=== PATIENT | female | born 1990 | race Caucasian/White ===

== ENCOUNTER 2019-02-09 14:44 | Outpatient (CLI) | payer OTHER | END 2019-02-10 10:49 | disposition home or self-care (01) | LOC: OBS/DEL 14:44 | DX: O16.2 Unspecified maternal hypertension, second trimester (principal); Z34.02 Encounter for supervision of normal first pregnancy, second trimester; O99.012 Anemia complicating pregnancy, second trimester; D64.89 Other specified anemias; O99.212 Obesity complicating pregnancy, second trimester; E66.01 Morbid (severe) obesity due to excess calories ==

== ENCOUNTER 2019-05-15 05:34 | Inpatient (IN) | payer OTHER ==
[~2019-05-15] VITALS: Ht 160 cm; Wt 3.2 kg
== END 2019-05-18 15:02 | disposition home or self-care (01) | DRG 788 ==
LOC: LDR 05:34 → OB/GYN 21:21
PROVIDERS: ADMIT Obstetrics & Gynecology
PROC: 10907ZC Drainage of Amniotic Fluid, Therapeutic from Products of Conception, Via Natural or Artificial Opening (ICD-10-PCS; 2019-05-15)
PROC: 3E0P7VZ Introduction of Hormone into Female Reproductive, Via Natural or Artificial Opening (ICD-10-PCS; 2019-05-15)
PROC: 3E033VJ Introduction of Other Hormone into Peripheral Vein, Percutaneous Approach (ICD-10-PCS; 2019-05-15)
PROC: 4A1HXCZ Monitoring of Products of Conception, Cardiac Rate, External Approach (ICD-10-PCS; 2019-05-15)
PROC: 10D00Z1 Extraction of Products of Conception, Low, Open Approach (ICD-10-PCS; principal; 2019-05-15 17:00)
DX: O82 Encounter for cesarean delivery without indication (principal); O61.0 Failed medical induction of labor; Z3A.39 39 weeks gestation of pregnancy; Z37.0 Single live birth

== ENCOUNTER 2019-05-21 00:06 | Inpatient (IN) | payer OTHER ==
[~2019-05-21] VITALS: Ht 160 cm; Wt 136.1 kg
--- NOTE | 2019-05-21 00:17 | NUR ---
SE RECIBE PTE ALERTA Y ORIENTADA X3,REFIERE QUE PARIO EL LUNES POR CESAREA ,REFIERE DOLOR EN EL AREA DE LA CESAREA,REFIERE QUE LA HERIDA ESTA CON SECRECIONES PURULENTAS,HORNE GINECOLOGO EL DR.CARLOS BULL.
--- NOTE | 2019-05-21 00:54 | NUR ---
EVALUA PACIENTE Y ORDENA TRATAMIENTO DEL CUAL ORIENTA PACIENTE.REFIERE COMPRENDER. COLECTA MUESTRAS DE LABORATORIOS Y ADMINISTRA MEDICAMENTO ISAMAR ORDEN MEDICA BAJO MEDIDAS ASEPTICAS.
--- NOTE | 2019-05-21 07:00 | NUR ---
PACIENTE ALERTA Y ORIENTADA EN JACKI BITA ESFERAS, PRESENTA BUEN PATRON RESPIRATORIO Y GENOVEVA DE DOLOR. CANALIZADA EN MANO RT PATENTE Y GENOVEVA DE S/S DE FLEBITIS E INFILTRACION, RECIBIENDO 0.45% NSS A 125 ML/HR. PENDIENTE QUE PACIENTE ENTREGUE MUESTRA DE ORINA PARA UA Y UC CLEAN CATCH. PACIENTE REFIERE NO TENER DESEOS. PENDIENTE EVALUACION MEDICA POR PARTE DE GINECOLOGIA.
== END 2019-06-05 16:06 | disposition home or self-care (01) | DRG 853 ==
LOC: ER 00:06 → OB/GYN 12:06 → SURH 12:06 → OB/GYN 05-22 10:33 → SURH 05-24 23:06
PROVIDERS: Surgery; ADMIT Obstetrics & Gynecology
PROC: 4A12X4Z Monitoring of Cardiac Electrical Activity, External Approach (ICD-10-PCS; 2019-05-25)
PROC: 0JB80ZZ Excision of Abdomen Subcutaneous Tissue and Fascia, Open Approach (ICD-10-PCS; 2019-05-26)
PROC: 0W9F0ZZ Drainage of Abdominal Wall, Open Approach (ICD-10-PCS; principal; 2019-05-26 12:45)
DX: A41.89 Other specified sepsis (principal); O86.04 Sepsis following an obstetrical procedure; N39.0 Urinary tract infection, site not specified; O86.01 Infection of obstetric surgical wound, superficial incisional site; R65.10 Systemic inflammatory response syndrome (SIRS) of non-infectious origin without acute organ dysfunction; B96.4 Proteus (mirabilis) (morganii) as the cause of diseases classified elsewhere; B96.6 Bacteroides fragilis [B. fragilis] as the cause of diseases classified elsewhere; B95.2 Enterococcus as the cause of diseases classified elsewhere; B96.1 Klebsiella pneumoniae [K. pneumoniae] as the cause of diseases classified elsewhere; B96.89 Other specified bacterial agents as the cause of diseases classified elsewhere; D64.89 Other specified anemias; I48.0 Paroxysmal atrial fibrillation; E66.8 Other obesity; Z88.6 Allergy status to analgesic agent; Z79.2 Long term (current) use of antibiotics

== ENCOUNTER 2024-02-14 19:00 | Emergency (ER) | payer OTHER ==
[~2024-02-14] VITALS: Ht 160 cm; Wt 158.8 kg
[2024-02-14] MEDS ORDERED: ACETAMINOPHEN 500 MG GEL..CAP PO ONE (20:15)
[2024-02-14] MEDS ORDERED: CLINDAMYCIN PHOSPHATE 150 MG/ML (600mg) IV ONE (20:15)
[2024-02-14 20:34] LABS: HEMATOCRIT 34.5 % (36.0-45.00); HEMOGLOBIN 11.3 g/dL (12.0-15.00); MEAN CELL VOLUME 83.8 fL (80.00-100.00); MEAN CORPUSCULAR HEMOGLOBIN 27.4 pg (27.00-32.0); MEAN CORPUSCULAR HGB CONC 32.7 g/dl (32.0-36.0); PLATELET COUNT 374 K/uL (150-450); RED BLOOD COUNT 4.12 M/uL (4.00-6.00); RED CELL DISTRIBUTION WIDTH 15.2 % (11.5-14.5)
[2024-02-14 20:52] LABS: CALCIUM 9.2 mg/dL (8.5-10.1); CREATININE SERUM 0.78 mg/dL (0.55-1.02); GFR 86.14; POTASSIUM 3.85 mEq/L (3.5-5.1)
== END 2024-02-14 21:54 | disposition home or self-care (01) ==
LOC: ER 19:01
PROVIDERS: General Practice
DX: L02.91 Cutaneous abscess, unspecified (principal); Z91.041 Radiographic dye allergy status; Z88.6 Allergy status to analgesic agent